=== PATIENT | male | born 1960 | race Two or more races ===

== ENCOUNTER 2022-03-08 16:10 | Emergency (ER) | payer OTHER ==
[~2022-03-08] VITALS: Ht 162.6 cm; Wt 86.6 kg
[2022-03-08] MEDS ORDERED: NORVASC10 MG PO (17:00)
[2022-03-08] MEDS ORDERED: ZESTRIL30 MG PO (17:00)
[2022-03-08] MEDS ORDERED: PRILOSEC OTC20 MG PO (17:01)
== END 2022-03-09 00:21 | disposition home or self-care (01) ==
LOC: ER 16:10
DX: T83.018A Breakdown (mechanical) of other urinary catheter, initial encounter (principal); Z46.6 Encounter for fitting and adjustment of urinary device; R31.9 Hematuria, unspecified; I10 Essential (primary) hypertension; K57.30 Diverticulosis of large intestine without perforation or abscess without bleeding